=== PATIENT | male | born 1985 | race Caucasian/White ===

== ENCOUNTER 2018-06-22 14:38 | Emergency (ER) | payer OTHER | END 2018-06-22 16:21 | disposition left against medical advice (07) | LOC: ER 14:38 | DX: Z53.21 Procedure and treatment not carried out due to patient leaving prior to being seen by health care provider (principal) ==

== ENCOUNTER 2018-06-23 09:47 | Emergency (ER) | payer OTHER ==
[~2018-06-23] VITALS: Ht 180.3 cm; Wt 88.5 kg
== END 2018-06-23 10:18 | disposition home or self-care (01) ==
LOC: ER 09:47
DX: S91.312D Laceration without foreign body, left foot, subsequent encounter (principal)